=== PATIENT | male | born 1965 | race Caucasian/White ===

== ENCOUNTER 2020-04-28 05:08 | Emergency (ER) | payer SELFPAY ==
[~2020-04-28] VITALS: Ht 185.4 cm; Wt 83.6 kg
[2020-04-28] MEDS ORDERED: THIAMINE 100MG TABLET ONE (05:30)
[2020-04-28] MEDS ORDERED: THIAMINE 100MG TABLET PO ONE (05:30)
[2020-04-28] MEDS ORDERED: PLEASE ENTER ALLERGIES MC SCH (05:30)
--- NOTE | 2020-04-28 07:15 | NUR ---
assumed care of pt. report from Emily MARVIN. pt here for ETOH. pt is currently sleeping in position of comfort and has urinated on the floor. no resp. distress. no obvious injury. no family at bedside
--- NOTE | 2020-04-28 08:00 | NUR ---
pt continues sleeping. no family at bedside
--- NOTE | 2020-04-28 09:00 | NUR ---
no changes. resting in position of comfort. awaiting meal tray to be delivered
--- NOTE | 2020-04-28 09:34 | NUR ---
pt easily arousable meal tray delivered. clean dry clothing at bedside
[2020-04-28 09:49] VITALS: BP 108/74
== END 2020-04-28 10:24 | disposition home or self-care (01) ==
LOC: ED 10:00
DX: F10.120 Alcohol abuse with intoxication, uncomplicated (principal); Z59.0 Homelessness; Y90.9 Presence of alcohol in blood, level not specified
CPT/HCPCS: 82962; 99285